=== PATIENT | male | born 1985 | race Caucasian/White ===

== ENCOUNTER 2018-09-03 23:20 | Emergency (ER) | payer OTHER ==
[~2018-09-03] VITALS: Ht 172.7 cm; Wt 86.2 kg
[2018-09-04] MEDS ORDERED: BACTRIM 400-801 EACH PO (04:22)
[2018-09-04] MEDS ORDERED: KETO10TA2 PO (04:22)
[2018-09-04] MEDS ORDERED: MUPIROCIN22 GM TOP ×2 (04:23)
== END 2018-09-04 04:26 | disposition home or self-care (01) ==
LOC: ER 23:20
DX: L08.89 Other specified local infections of the skin and subcutaneous tissue (principal)

== ENCOUNTER 2018-11-13 22:27 | Emergency (ER) | payer OTHER ==
[~2018-11-13] VITALS: Ht 175.3 cm; Wt 88.5 kg
[~2018-11-13 22:27] MED LIST: BACTRIM 400-801 EACH PO; KETO10TA2 PO; MUPIROCIN22 GM TOP
== END 2018-11-13 23:09 | disposition home or self-care (01) ==
LOC: ER 22:27
DX: M79.662 Pain in left lower leg (principal)